=== PATIENT | female | born 1965 | race Caucasian/White ===

== ENCOUNTER → 2022-03-03 10:21 | Outpatient (BNVA) | payer OTHER, SELFPAY | PROVIDERS: Family Provider Family Medicine; Visit Provider Registered Nurse Neonatal Intensive Care | DX: M79.672 Pain in left foot (principal) | CPT/HCPCS: 73630 ==

== ENCOUNTER 2024-02-29 10:08 | Emergency (ER) | payer BC, SELFPAY ==
[2024-02-29 10:14] VITALS: BP 179/116; PULSE 70; TEMP 36.4; O2SAT 97; BMI 41.5
--- NOTE | 2024-02-29 10:43 | ED_ITS ---
HPI - Headache 2 General: Chief Complaint: Headache Stated Complaint: headache Time Seen by Provider: 02/29/24 10:15 Source: patient Mode of arrival: ambulatory Limitations: no limitations History of Present Illness: Patient is a 58-year-old female presents to ED today with complaint of a severe headache. Patient states she has a history of chronic headaches that she states stems from head injury as a child. She states she was told by pain management that she has some abnormalities to her frontal lobe causes her to have chronic headaches. She states she has headaches almost daily however approximately 3 days ago she began developing an uncharacteristic left-sided headache. She states she did have an episode of nausea and vomiting. She noticed when she got home from work that her left eye was bloodshot . Patient states headache did somewhat ease up but remained fairly significant over the weekend thus prompting her medical evaluation today. Patient feels like she is having difficulty thinking. Reports her vision maybe somewhat blurry . She is not having any trouble with speech or ambulation. No numbness/tingling/weakness to her arms or legs. No facial droop. Patient upon triage to the emergency department was very hypertensive with a blood pressure of 179/116. At my time of examination it is 168/90. She states she has no history of hypertension nor does she ever check her blood pressure at home. Denies chest/abdominal pain. Is not having any neck pain or stiffness. No fevers. No recent illness. MD elicited complaint: headache Onset (ago): day(s) Onset description: while at rest Location: left, temporal and retro-orbital Severity: severe Exacerbating factors: light and noise Relieving factors: nothing Context: occurred at rest Associated symptoms: Reports nausea and vomiting; Deny chest pain, confusion, fever(s), malaise or rash Treatments prior to arrival: acetaminophen and ibuprofen Related Data Previous Rx's Medication Instructions Recorded lisinopril 10 mg tablet 10 mg PO DAILY #30 tabs 02/29/24 Allergies Allergy/AdvReac Type Severity Reaction Status Date / Time codeine Allergy Intermediate ADR-Confusi Verified 02/29/24 10:21 on Review of Systems 2 Const: Denies: fever(s), chills, body aches, fatigue or malaise Eyes: Reports: blurry vision, photophobia and eye redness (left); Denies: change in vision, floaters or seeing flashes ENMT: Denies: nasal discharge, nasal congestion or sinus pain Card: Denies: chest pain or palpitations Resp: Denies: dyspnea GI: Reports: nausea and vomiting; Denies: abdominal pain : Denies: flank pain, difficulty voiding, dysuria, urinary frequency, urinary urgency or urinary hesitancy Musc: Denies: neck pain, back pain, extremity pain or joint pain Skin/Breast: Denies: rash Neuro: Reports: headache(s) and difficulty communicating thoughts; Denies: numbness in extremities, weakness in extremities, sensory changes, lack of coordination, difficulty walking, frequent falls, dizziness, vertigo, confusion, behavioral changes, Slurred speech present or seizure-like activity PFSH ED 2 PFSH: Medical History Minor depression Essential hypertension Intermittent, associated with anxiety, not on medication Degenerative disc disease Surgical History History of repair of hiatal hernia Family History Denies family history of Diabetes CAD (coronary artery disease) Hypertension Social History Smoking and tobacco/nicotine status: never used tobacco/nicotine Alcohol intake: never Marital status: Physical Exam 2 Const: COMMON NORMALS: no acute distress, patient oriented x3, no limitations, alert and well nourished NUTRITIONAL APPEARANCE: obese (BMI is 41.6) O RIENTATION/CONSCIOUSNESS: Yes awake, Yes oriented to person, Yes oriented to place and Yes oriented to time HENMT: COMMON NORMALS: normocephalic and atraumatic HEAD & SCALP: normal to inspection, normocephalic and atraumatic FACE & SINUS: normal facial exam and face symmetric Eye: COMMON NORMALS: Equal, round and reactive pupils present and EOMs intact bilaterally GENERAL EYE: normal light reflex VISUAL CANSECO: Yes other (no visual loss) ALIGNMENT: Yes alignment normal PERIORBITAL: periorbital findings normal EYELID: eyelids normal CONJUNCTIVA: Yes conjunctival abnormal (L lateral subconjunctival hemorrhage) PUPIL: Yes Equal, round and reactive pupils present DIRECT OPHTHALMOSCOPY: Yes normal light reflex Neck/C-Spine: COMMON NORMALS: full ROM, no lymphadenopathy, supple and no meningeal signs Chest: COMMONS NORMALS: normal inspection of the chest Resp: COMMON NORMALS: normal respiratory effort and clear to auscultation bilaterally AUSCULTATION: clear to auscultation bilaterally Cardio: COMMON NORMALS: regular rate and regular rhythm RATE: regular rate RHYTHM: regular rhythm Back/Pelvis: COMMON NORMALS: thoracic and lumbar spine normal to inspection Extremity: COMMON NORMALS: normal to inspection GENERAL: Yes normal exam except as noted Neuro: TATE COMA SCALE: document GCS findings [place] coma scale eye opening: Spontaneous [place] coma scale verbal response: Orientated [place] coma scale motor response: Obey commands [place] coma scale total score: 15 COMMON NORMALS: patient oriented x3, CN's II-XII intact bilaterally, moves all extremities, no focal motor deficits, no sensory deficits noted and gait normal SENSORIUM/ORIENTATION: Yes alert, Yes oriented to person, Yes oriented to place and Yes oriented to time MENINGEAL SIGNS: Yes no meningeal signs Skin: COMMON NORMALS: no rashes or lesions noted GENERAL SKIN EXAM: no rashes or lesions noted Course 2 Vital Signs: Vital signs: Vital Signs Temperature 97.5 F L 02/29/24 10:14 Pulse Rate 61 02/29/24 13:30 Blood Pressure 154/88 02/29/24 13:30 Pulse Oximetry 97 02/29/24 13:30 Oxygen Delivery Me thod Room Air 02/29/24 13:30 MDM - Headache Medical Decision Making Patient upon re-examination appears in NAD. Headache has improved as well as her blood pressure. CT/CTA imaging unremarkable. Recommend starting to keep BP log and will start on Lisinopril if she continues to be hypertensive at home. Will have CM set her up with primary care as she admittedly has not seen a doctor in many years. Return precautions given. Differential Diagnosis Likely migraine and headache Medical Records I reviewed the patient's medical records. Lab Data I reviewed the patient's lab results. 02/29/24 12:30 02/29/24 12:[address] 02/29/24 10:52 IMPRESSION: No acute intracranial abnormality. Head/Neck CTA 02/29/24 10:52 IMPRESSION: No large vessel stenosis or occlusion. IMPRESSION: No hemodynamically significant stenosis. REFERENCES: NASCET CRITERIA. The degree of stenosis in the cervical segment of the internal carotid artery is based on NASCET criteria. Normal is no stenosis. Mild is less than 50% stenosis. Moderate is 50-69% stenosis. Severe is 70% to 99% stenosis. Total occlusion is no detectable patent lumen. Laboratory Results WBC 7.92 10^3/uL (3.29-11.43) 02/29/24 12:30 RBC 4.49 10^6/uL (3.85-5.65) 02/29/24 12:30 Hgb 13.30 g/dL (11.27-16.99) 02/29/24 12:30 Hct 42.1 % (36-47) 02/29/24 12:30 MCV 93.8 fl (85-98) 02/29/24 12:30 MCH 29.6 pg (27-33) 02/29/24 12:30 MCHC 31.6 g/dL (30-55) 02/29/24 12:30 RDW 13.6 % (12.1-15.1) 02/29/24 12:30 Plt Count 285 10^3/cmm (157-399) 02/29/24 12:30 MPV 10.6 fL (7.4-10.4) H 02/29/24 12:30 Neut % (Auto) 64.8 % 02/29/24 12:30 Lymph % (Auto) 26.8 % 02/29/24 12:30 [place] % (Auto) 5.2 % 02/29/24 12:30 Eos % (Auto) 2.0 % 02/29/24 12:30 Baso % (Auto) 0.9 % 02/29/24 12:30 Neut # (Auto) 5.14 10^3/uL (1.8-7.7) 02/29/24 12:30 Lymph # (Auto) 2.1 10^3/uL (0.8-4.8) 02/29/24 12:30 [place] # (Auto) 0.4 10^3/uL (0.2-0.9) 02/29/24 12:30 Eos # (Auto) 0.2 10^3/uL (0.0-0.8) 02/29/24 12:30 Baso # (Auto) 0.1 10^3/uL (0.0-0.1) 02/29/24 12:30 Nucleated RBC % (auto) 0 % 02/29/24 12:30 Nucleated RBCs # 0.0 /100WBC 02/29/24 12:30 Sodium 142 mmol/L (136-145) 02/29/24 12:30 Potassium 4.5 mmol/L (3.5-5.1) 02/29/24 12:30 Chloride 107 mmol/L (98-107) 02/29/24 12:30 Carbon Dioxide 25 mmol/L (22-29) 02/29/24 12:30 Anion Gap 14.5 (5-19) 02/29/24 12:30 BUN 13 mg/dL (6-20) 02/29/24 12:30 Creatinine 0.7 mg/dL (0.5-0.9) 02/29/24 12:30 GFR Calculation 85.6 mL/min (90-130) L 02/29/24 12:30 Glucose 100 mg/dL (65-115) 02/29/24 12:30 Calculated Osmolality 294 mOsm/kg (285-295) 02/29/24 12:30 Calcium 8.2 mg/dL (8.5-10.5) L 02/29/24 12:30 Total Bilirubin 0.3 mg/dL (0.15-1.2) 02/29/24 12:30 AST 15 U/L (0-32) 02/29/24 12:30 ALT 17 U/L (0-33) 02/29/24 12:30 Alkaline Phosphatase 118 U/L (35-105) H 02/29/24 12:30 Total Protein 6.6 g/dL (6.6-8.7) 02/29/24 12:30 Albumin 4.0 g/dL (3.5-5.2) 02/29/24 12:30 Globulin 2.6 g/dL (1.3-4.6) 02/29/24 12:30 All radiology interpretation(s) finalized by discharge Discharge Plan Discharge Patient Disposition: Home Clinical Impression: Essential hypertension Migraine Qualifiers: Migraine type: unspecified Status migrainosus presence: with status migrainosus Intractability: not intractable Qualified Code(s): G43.901 - Migraine, unspecified, not intractable, with status migrainosus Condition: Stable Prescriptions: New lisinopril 10 mg tablet 10 mg PO DAILY Qty: 30 0RF Discharge Orders: Discharge ED (Routine); Ordered 02/29/24 Ordered By: Julianne Becerra Referrals: Talat Avalos MD [Family Provider] - Activity Restrictions/Additional Instructions: I will have case management reach out to you to help set you up with a follow-up appointment with a primary care provider. I would like you to begin checking your blood pressure twice daily at home and keep a log. If your blood pressure is routinely running higher than 140/90 I would like you to fill the prescription for lisinopril and begin taking this. Your primary care provider can then adjust this based on your blood pressure log. You may return to the emergency department for onset of severe headache, visual changes, repetitive episodes of nausea or vomiting, severe chest pain, shortness of breath, or difficulty breathing, abdominal pain, or any other concerns you may have. I hope you begin to feel better soon. Coding Level of Care Code ED Tip Tester for Gatito Burden
--- NOTE | 2024-02-29 10:52 | CTR_ITS ---
PROCEDURE INFORMATION: Exam: CTA Head With Contrast, Arteriography Exam date and time: 02/29/2024 11:51 AM Age: 58 years old Clinical indication: Pain; Headache; Additional info: Severe HALEY TECHNIQUE: Imaging protocol: Computed tomographic angiography of the head with contrast. Exam focused on the arteries. 3D rendering (Not supervised by radiologist): MIP and/or 3D reconstructed images were created by the technologist. Radiation optimization: All CT scans at this facility use at least one of these dose optimization techniques: automated exposure control; mA and/or kV adjustment per patient size (includes targeted exams where dose is matched to clinical indication); or iterative reconstruction. Contrast material: [id number]; Contrast volume: 100 ml; Contrast route: INTRAVENOUS (IV); COMPARISON: CT head wo con* [id number] 02/29/2024 11:48 AM RADIATION DOSE METRICS: Total DLP (mGy-cm): 2614 FINDINGS: ANTERIOR CIRCULATION: Right internal carotid artery: Intracranial segment is patent with no significant stenosis. No aneurysm. Right middle cerebral artery: No occlusion or significant stenosis. No aneurysm. Right anterior cerebral artery: No occlusion or significant stenosis. No aneurysm. Left internal carotid artery: Intracranial segment is patent with no significant stenosis. No aneurysm. Left middle cerebral artery: No occlusion or significant stenosis. No aneurysm. Left anterior cerebral artery: No occlusion or significant stenosis. No aneurysm. POSTERIOR CIRCULATION: Right vertebral artery: No occlusion or significant stenosis. No aneurysm. Left vertebral artery: No occlusion or significant stenosis. No aneurysm. Basilar artery: No occlusion or significant stenosis. No aneurysm. Right posterior cerebral artery: No occlusion or significant stenosis. No aneurysm. Left posterior cerebral artery: No occlusion or significant stenosis. No aneurysm. Brain: No definite mass, mass effect, or midline shift. Cerebral ventricles: No ventriculomegaly. Bones/joints: Unremarkable. No acute fracture. Soft tissues: Unremarkable. PROCEDURE INFORMATION: Exam: CTA Neck With Contrast Exam date and time: 02/29/2024 11:51 AM Age: 58 years old Clinical indication: Pain; Headache; Additional info: Severe HALEY TECHNIQUE: Imaging protocol: Computed tomographic angiography of the neck with contrast. Exam focused on the cervical segments of the vasculature. 3D rendering (Not supervised by radiologist): MIP and/or 3D reconstructed images were created by the technologist. Radiation optimization: All CT scans at this facility use at least one of these dose optimization techniques: automated exposure control; mA and/or kV adjustment per patient size (includes targeted exams where dose is matched to clinical indication); or iterative reconstruction. Contrast material: [id number]; Contrast volume: 100 ml; Contrast route: INTRAVENOUS (IV); COMPARISON: CT head wo con* [id number] 02/29/2024 11:48 AM RADIATION DOSE METRICS: Total DLP (mGy-cm): 2614 FINDINGS: Right common carotid artery: No stenosis. No dissection or occlusion. Right internal carotid artery: No stenosis of the extracranial segment. No dissection or occlusion. Right external carotid artery: No occlusion or stenosis of the origin. Left common carotid artery: No stenosis. No dissection or occlusion. Left internal carotid artery: No stenosis of the extracranial segment. No dissection or occlusion. Left external carotid artery: No occlusion or stenosis of the origin. Right vertebral artery: No stenosis. No dissection or occlusion. Left vertebral artery: No stenosis. No dissection or occlusion. Soft tissues: Normal. No significant soft tissue swelling. Bones/joints: No acute fracture. CT/CT angio headneck* [id number] IMPRESSION: No large vessel stenosis or occlusion. IMPRESSION: No hemodynamically significant stenosis. REFERENCES: NASCET CRITERIA. The degree of stenosis in the cervical segment of the internal carotid artery is based on NASCET criteria. Normal is no stenosis. Mild is less than 50% stenosis. Moderate is 50-69% stenosis. Severe is 70% to 99% stenosis. Total occlusion is no detectable patent lumen.
--- NOTE | 2024-02-29 10:52 | CTR_ITS ---
PROCEDURE INFORMATION: Exam: CT Head Without Contrast Exam date and time: 02/29/2024 11:48 AM Age: 58 years old Clinical indication: Pain; Headache; Additional info: Severe headache TECHNIQUE: Imaging protocol: Computed tomography of the head without contrast. Radiation optimization: All CT scans at this facility use at least one of these dose optimization techniques: automated exposure control; mA and/or kV adjustment per patient size (includes targeted exams where dose is matched to clinical indication); or iterative reconstruction. COMPARISON: No relevant prior studies available. RADIATION DOSE METRICS: Total DLP (mGy-cm): 1086 FINDINGS: Brain: No midline shift. Ventricles, cisterns, and sulci are normal. No mass, acute infarct, hemorrhage, or extraaxial fluid collection. Cerebral ventricles: No ventriculomegaly. Paranasal sinuses: Visualized sinuses are unremarkable. No fluid levels. Mastoid air cells: Visualized mastoid air cells are well aerated. Bones: Unremarkable. No acute fracture. Soft tissues: Unremarkable. CT/CT head wo con* [id number] IMPRESSION: No acute intracranial abnormality.
[2024-02-29] MEDS: sodium chloride 0.9% 1,000 ML 999 ML IV (11:05)
[2024-02-29] MEDS: diphenhydrAMINE 50 mg/mL SDV 1mL IVP (11:30)
[2024-02-29] MEDS: ketorolac 60 mg/2 mL INJ 30 MG IVP (11:30)
[2024-02-29] MEDS: dexamethasone 10 mg/mL INJ 8 MG IVP (11:30)
[2024-02-29] MEDS: ondansetron 2 mg/ML SDV 2 mL 4 MG IVP (11:30)
[2024-02-29] MEDS: iohexol 350 mg/mL 500 mL Btl (per mL) IV (12:03)
[2024-02-29 12:24] VITALS: BP 160/86; PULSE 71; O2SAT 96
[2024-02-29 12:39] LABS: Basophils # 0.1 10^3/uL (0.0-0.1); Basophils % 0.9 %; Eosinophils # 0.2 10^3/uL (0.0-0.8); Hematocrit 42.1 % (36-47); Lymphocytes # 2.1 10^3/uL (0.8-4.8); Lymphocytes % 26.8 %; Mean Corpuscular HGB Conc 31.6 g/dL (30-55); Mean Corpuscular Hemoglobin 29.6 pg (27-33); Mean Corpuscular Volume 93.8 fl (85-98); Mean Platelet Volume 10.6 fL (7.4-10.4); Monocytes # 0.4 10^3/uL (0.2-0.9); Monocytes % 5.2 %; Neutrophils # 5.14 10^3/uL (1.8-7.7); Neutrophils % 64.8 %; Nucleated Red Blood Cells % 0 %; Platelet Count 285 10^3/cmm (157-399); Red Blood Count 4.49 10^6/uL (3.85-5.65); Red Cell Distribution Width 13.6 % (12.1-15.1); White Blood Count 7.92 10^3/uL (3.29-11.43)
[2024-02-29 12:57] LABS: Alanine Aminotransferase 17 U/L (0-33); Alkaline Phosphatase 118 U/L (35-105); Anion Gap 14.5 (5-19); Aspartate Amino Transferase 15 U/L (0-32); Blood Urea Nitrogen 13 mg/dL (6-20); Calcium 8.2 mg/dL (8.5-10.5); Carbon Dioxide 25 mmol/L (22-29); Chloride 107 mmol/L (98-107); Creatinine Clr Calc Pharmacy 108.6836; Globulin 2.6 g/dL (1.3-4.6); Glomerular Filtration Rate 85.6 mL/min (90-130); Glucose 100 mg/dL (65-115); Osmolality Calculated 294 mOsm/kg (285-295); Potassium 4.5 mmol/L (3.5-5.1); Sodium 142 mmol/L (136-145); Total Bilirubin 0.3 mg/dL (0.15-1.2); Total Protein 6.6 g/dL (6.6-8.7)
[2024-02-29 13:00] VITALS: BP 169/96; PULSE 62; O2SAT 97
[2024-02-29] MEDS: enalaprilat 2.5 mg/2 mL SDV 0.625 MG IVP (13:13)
[2024-02-29 13:20] VITALS: BP 145/87; PULSE 66; O2SAT 97
[2024-02-29 13:30] VITALS: BP 154/88; PULSE 61; O2SAT 97
[2024-02-29 13:40] VITALS: BP 162/92; PULSE 62; O2SAT 98
--- NOTE | 2024-03-01 07:56 | DCPLANNER ---
Message sent to [facility] for follow up
== END 2024-02-29 13:42 | disposition home or self-care (01) ==
PROVIDERS: Emergency Provider Physician Assistant; Family Provider Family Medicine
DX: G43.901 Migraine, unspecified, not intractable, with status migrainosus (principal); I10 Essential (primary) hypertension
CPT/HCPCS: 36415; 70450; 70496; 70498; 80053; 85025; 96361; 96374; 96375; 99285; J1100; J1200; J1885; J2405; J7030; Q9967